=== PATIENT | female | born 1990 | race Caucasian/White ===

== ENCOUNTER 2019-04-14 19:10 | Emergency (ER) | payer OTHER ==
[~2019-04-14] VITALS: Ht 170.2 cm; Wt 65.0 kg
[~2019-04-14 19:10] MED LIST: CYCLOBENZAPRINE10 MG PO; IBUPROFEN600 MG PO; IBUPROFEN800 MG PO; KEFLEX500 MG PO; LIDOCAINE30 G TOP; NAPROXEN500 MG PO; NORCO 5-325 TA1 EACH PO; ORTHO EVRA PAT1 EACH TD; PENICILLIN V P500 MG PO; PREVIFEM1 EACH PO
--- OUTSIDE RECORDS SUMMARY | 2019-04-14 19:12 | XMS ---
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 EDamián VISIT COUNT (12 MO.) 1 MARY Servin TOTAL 1 NOTE: Visits indicate total known visits. ED/UCC VISIT TRACKING (12 MO.) 04/14/2019 19:10 MARY Estrada [place] TYPE: Emergency COMPLAINT: - WRIST INJURY INPATIENT VISIT TRACKING (12 MO.) No inpatient visits to display in this time frame [email or web address]
[2019-04-14] MEDS ORDERED: ZOLOFT25 MG PO (20:28)
[2019-04-14] MEDS ORDERED: TRAMADOL HCL50 MG PO (21:32)
== END 2019-04-14 21:58 | disposition home or self-care (01) ==
LOC: ED 19:10
DX: S63.502A Unspecified sprain of left wrist, initial encounter (principal); X50.1XXA Overexertion from prolonged static or awkward postures, initial encounter
CPT/HCPCS: 73110; 99283

== ENCOUNTER 2019-04-17 15:03 | Emergency (ER) | payer OTHER ==
[~2019-04-17] VITALS: Ht 170.2 cm; Wt 65.0 kg
[~2019-04-17 15:03] MED LIST changes: +TRAMADOL HCL50 MG PO; +ZOLOFT25 MG PO
--- OUTSIDE RECORDS SUMMARY | 2019-04-17 15:06 | XMS ---
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 Care History Medical/Surgical 04/15/2019 [facility] - Patient is currently established with [facility]. If patient is seen in the ED during business hours. Please contact [facility]Ws at [facility]. Care Recommendation: This patient has had 5 or more Emergency Department visits in the last 12 months.\T\nbsp; Patient requires education on the scope and purpose of the ED as an acute care provider not a Primary Care Provider and should not be utilized for chronic conditions.\T\nbsp; These are guidelines and the provider should exercise clinical judgment when providing care. E.D. VISIT COUNT (12 MO.) 2 MARY Servin TOTAL 2 NOTE: Visits indicate total known visits. ED/UCC VISIT TRACKING (12 MO.) 04/17/2019 15:03 [facility] Estrada [place] TYPE: Emergency COMPLAINT: - LEFT WRIST PAIN 04/14/2019 19:10 M[facility] Estrada [place] TYPE: Emergency COMPLAINT: - WRIST INJURY DIAGNOSES: - Unspecified sprain of left wrist, initial encounter - Overexertion from prolonged static or awkward postures, initial encounter - Pain in left wrist INPATIENT VISIT TRACKING (12 MO.) No inpatient visits to display in this time frame [id number]
== END 2019-04-17 16:54 | disposition home or self-care (01) ==
LOC: ED 15:03
DX: S63.502A Unspecified sprain of left wrist, initial encounter (principal); S53.402A Unspecified sprain of left elbow, initial encounter; W18.30XA Fall on same level, unspecified, initial encounter; Z79.899 Other long term (current) drug therapy
CPT/HCPCS: 73090; 99283

== ENCOUNTER 2020-02-25 05:37 | Emergency (ER) | payer OTHER ==
[~2020-02-25] VITALS: Ht 170.2 cm; Wt 70.4 kg
--- OUTSIDE RECORDS SUMMARY | ~2020-02-25 | XMS | Clinical Summary ---
Demographics + + + | Address | [address] | | | [place] [address] | + + + | Home Phone | | + + + | Preferred Language | Unknown | + + + | Marital Status | Single | + + + | Uatsdin Affiliation | Unknown | + + + | Race | Unknown | + + + | Ethnic Group | Unknown | + + + Author + + + | Author | [facility] | | | and [place] | + + + | Organization | [facility] | | | and [place] | + + + | Address | Unknown | + + + | Phone | Unavailable | + + + Support + + +---------+ + | Name | Relationship | Address | Phone | + + +---------+ + | Per Patient None | ECON | Unknown | | + + +---------+ + Care Team Providers + +------+ + | Care Aviation Manager Name | Role | Phone | + +------+ + | Brian Davalos PCP | | + +------+ + Allergies No Known Allergies Medications + + + +---------+------+------+-------+ | Medication | Sig | Dispensed | Refills | Star | End | Statu | | | | | | t | Date | s | | | | | | Date | | | + + + +---------+------+------+-------+ | predniSONE | Take 5 mg by mouth | | 0 | | | Activ | | (DELTASONE) 10 mg | Daily. | | | | | e | | tablet | | | | | | | + + + +---------+------+------+-------+ | sertraline | Take 200 mg by mouth | | 0 | | | Activ | | (ZOLOFT) 100 mg | Daily. | | | | | e | | tablet | | | | | | | + + + +---------+------+------+-------+ | cyclobenzaprine | Take 5 mg by mouth 3 | | 0 | | | Activ | | (FLEXERIL) 5 MG | times daily as | | | | | e | | tablet | needed for Muscle | | | | | | | | spasms. | | | | | | + + + +---------+------+------+-------+ Active Problems Not on file Social History + +-------+ +--------+------+ | Tobacco Use | Types | Packs/Day | Years | Date | | | | | Used | | + +-------+ +--------+------+ | Never Smoker | | | | | + +-------+ +--------+------+ + +---+---+---+ | Smokeless Tobacco: | | | | | Never Used | | | | + +---+---+---+ + + +---------+ + | Alcohol Use | Drinks/Week | oz/Week | Comments | + + +---------+ + | Yes | | | on occasion | + + +---------+ + + + + | Sex Assigned at | Date Recorded | | | | + + + | Not on file | | + + + Last Filed Vital Signs + + + + + | Vital Sign | Reading | Time Taken | Comments | + + + + + | Blood Pressure | 108/77 | 10/26/2019 12:30 PM | | | | | PDT | | + + + + + | Pulse | 78 | 10/26/2019 12:30 PM | | | | | PDT | | + + + + + | Temperature | 37.1 C (98.7 F) | 10/26/2019 10:32 AM | | | | | PDT | | + + + + + | Respiratory Rate | 16 | 10/26/2019 10:32 AM | | | | | PDT | | + + + + + | Oxygen Saturation | 100% | 10/26/2019 12:30 PM | | | | | PDT | | + + + + + | Inhaled Oxygen | - | - | | | Concentration | | | | + + + + + | Weight | 77.1 kg (170 lb) | 10/26/2019 10:32 AM | | | | | PDT | | + + + + + | Height | 167.6 cm (5' 6") | 10/26/2019 10:32 AM | | | | | PDT | | + + + + + | Body Mass Index | 27.44 | 10/26/2019 10:32 AM | | | | | PDT | | + + + + + Plan of Treatment + + + + + | Health Maintenance | Due Date | Last | Comments | | | | Done | | + + + + + | Hepatitis C | | | | | Screening | 0 | | | + + + + + | Cervical Cancer | | | | | Screening (Pap) | 0 | | | + + + + + | Vaccine: Influenza | | 05/02/20 | | | (#1) | 0 | 19, | | | | | 05/17/20 | | | | | 13, | | | | | 06/02/20 | | | | | 11 | | + + + + + | Vaccine: | | 11/07/19 | | | Dtap/Tdap/Td (8 - | 4 | 14, | | | Td) | | 12/11/19 | | | | | 08, | | | | | 08/29/19 | | | | | 03, | | | | | Addition | | | | | al | | | | | history | | | | | exists | | + + + + + Results Not on filefrom Last 3 Months Insurance + +--------+ +--------+ +---------+--------+ | Payer | Benefi | Subscriber | Effect | Phone | Address | Type | | | t Plan | ID | negrita | | | | | | / | | Dates | | | | | | Group | | | | | | + +--------+ +--------+ +---------+--------+ | [employer] | [employer] | [id number] | | [phone] | | Medica | | MEDICAID HMO | HEALTH | | [phone]-Pr | 1 | | id | | | MDCD | | esent | | | | | | [place]MO [place] | | | | | | + +--------+ +--------+ +---------+--------+ + +--------+ +--------+ + + | Guarantor Name | Accoun | Relation to | Date | Phone | Billing Address | | | t Type | Patient | of | | | | | | | | | | + +--------+ +--------+ + + | Erin Coleman | Person | Self [birth year] | | | al/Fam | | 1990 | [phone] | [place] [address] | | | [place] | | | [address] (Home) | | + +--------+ +--------+ + + Advance Directives + + + + + | Type | Date Recorded | Patient | Explanation | | | | 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
--- OUTSIDE RECORDS SUMMARY | ~2020-02-25 | XMS | Encounter Summary ---
Demographics + + + | Address | [address] | | | [place] [address] | + + + | Home Phone | | + + + | Preferred Language | Unknown | + + + | Marital Status | Single | + + + | Alevism Affiliation | Unknown | + + + | Race | Unknown | + + + | Ethnic Group | Unknown | + + + Author + + + | Author | [facility] | | | and [place] | + + + | Organization | [facility] | | | and [place] | [...] Team Providers + +------+ + | Care Piano Case Maker Name | Role | Phone | + +------+ + | Brian Davalos PCP | | + +------+ + Reason for Visit + + + | Reason | Comments | + + + | Back Pain | | + + + | Dysuria | | + + + Encounter Details +--------+ + + + + | Date | Type | Department | Care Team | Description | +--------+ + + + + | 10/25/ | Emergency | [facility] | Vivek Gandara, | Acute bilateral low | | 2019 | | [facility] | MD [address] | back pain without | | | | CENTER [address] | [place], [place] | sciatica (Primary | | | | [place], [place] | [address] | Dx); Dysuria | | | | [address] | | | | | | [phone] | | | +--------+ + + + + Social History + +-------+ +--------+------+ | Tobacco [...] on file | | + + + documented as of this encounter Last Filed Vital Signs + + + [...] | | + + + + + documented in this encounter Discharge Instructions AttachmentsThe following attachments cannot be sent through Care Everywhere.Dysuria ([place])Dysuria, Uncertain Cause (Adult) (Citizen [place])Back Pain, Relieving (Citizen [place])Back, How It Works (Citizen [place])Safety, Back: Bending (Citizen [place])documented in this encounter Medications at Time of Discharge + + + +---------+ + + | Medication | Sig | Dispensed | Refills | Start | End Date | | | | | | Date | | + + + +---------+ + + | cyclobenzaprine | Take 5 mg by mouth 3 | | 0 | | | | (FLEXERIL) 5 MG | times daily as | | | | | | tablet | needed for Muscle | | | | | | | spasms. | | | | | + + + +---------+ + + | predniSONE | Take 5 mg by mouth | | 0 | | | | (DELTASONE) 10 mg | Daily. | | | | | | tablet | | | | | | + + + +---------+ + + | sertraline | Take 200 mg by mouth | | 0 | | | | (ZOLOFT) 100 mg | Daily. | | | | | | tablet | | | | | | + + + +---------+ + + | gabapentin | Take 1 capsule by | 30 | 0 | 10/26/19 | | | (NEURONTIN) 300 mg | mouth 3 times daily | capsule | | 20 | 0 | | capsule | for 10 days. | | | | | + + + +---------+ + + | | Take 1 tablet by | 12 | 0 | 10/26/19 | | | HYDROcodone-acetamin | mouth every 6 hours | tablet | | 20 | 0 | | ophen (NORCO) 5-325 | as needed for Pain | | | | | | mg per tablet | for up to 3 days. | | | | | + + + +---------+ + + documented as of this encounter ED Rosy Howard RN - 10/26/2019 12:45 PM PDTDischarged in stable condition per MD order. Pt received discharge instructions and performed verbal repeatback for RN to indicate full u nderstanding. All questions answered. Pt alert/oriented, ambulatory with steady gait, breath ing unlabored on room air, and skin pink/warm/dry. No additional needs noted. Rosy Summers RN - 10/26/2019 10 :32 AM PDTPt here for low back pain along with urinary urgency (which pt states came first). Hx of herniated disc L4/L5. Took course of prednisone and muscle relaxers after seen by PCP a few days ago, and did 2 days bedrest and alternating heat/cold therapy. Little to no reli ef. Vivek Lawrence MD - 10/26/2019 10:19 AM PDT [facility] Erin Coleman EMERGENCY DEPARTMENT ENCOUNTER NOTE [address] [place] [id number] PCP:Brian Davalos [phone] DIAGNOSIS: ICD-10-CM ICD-9-CM 1. Acute bilateral low back pain without sciatica M54.5 724.2 338.19 2. Dysuria R30.0 788.1 CHIEF COMPLAINT: Chief Complaint Patient presents with Back Pain Dysuria ED Room: ED02/ED02 10/27/2019 1032 ED Triage Notes Pt here for low back pain along with urinary urgency (which pt states came first). Hx of he rniated disc L4/L5. Took course of prednisone and muscle relaxers after seen by PCP a few da ys ago, and did 2 days bedrest and alternating heat/cold therapy. Little to no relief. Displaying data from 0259 to 1059 HPI Erin Coleman is a 29 y.o. female who presents to the Emergency Department presents with g reater than 1 to 2 weeks of low back pain that makes her feel almost incapacitated at someti mes. No recent travel outside the [place] no recent falls or injuries. She went down to the dain und of the day because she felt incapacitated due to the pain. Now she has numbness and tin gling all over her body. No recent falls no injuries. No temperature greater than 100 F. No travel outside the [place] No new medications or pills. Reports sometimes having difficulty holding her urine befo re she goes to the bathroom. But she notes that she needs to go the bathroom she needs to g o urgently and she may have had some accidents. She has not had episodes where she was comp letely unaware that she needed to void and urinated on herself. She has not had loss of con trol of her bowel habits. PAST MEDICAL & SURGICAL HISTORY The patient has a past medical history of Lumbar herniated disc. The patient has a past adkins rgical history that includes section. CURRENT MEDICATIONS [facility] Home Medications Medication Sig cyclobenzaprine (FLEXERIL) 5 MG tablet Take 5 mg by mouth 3 times daily as needed for M uscle spasms. predniSONE (DELTASONE) 10 mg tablet Take 5 mg by mouth Daily. sertraline (ZOLOFT) 100 mg tablet Take 200 mg by mouth Daily. ALLERGIES No Known Allergies FAMILY AND SOCIAL HISTORY The patient's family history is not on file. The patient reports that she has never smoked. She has never used smokeless tobacco. She reports current alcohol use. She reports previous drug use. REVIEW OF SYSTEMS As in history of present illness. A 10 system review was otherwise negative. PHYSICAL EXAM VITAL SIGNS: (first vital signs):Temp: 37.1 C (98.7 F) Pulse: 71 Resp: 16 SpO2: 100 % B P: 119/81 Body mass index is 27.44 kg/m. Vitals: 10/26/19 1145 10/26/19 1200 10/26/19 1215 10/26/19 1230 BP: 111/74 104/73 113/66 108/77 Pulse: 63 67 65 78 Resp: Temp: TempSrc: SpO2: 100% 100% 100% 100% Weight: Height: General: Alert, no active distress and not requiring any emergent interventions Eyes: Normal inspection, pupils equal and round, non-icteric sclera ENT: Ears normal Nose normal Pharynx normal Neck: Normal inspection Supple Full ROM Cardiovascular: Normal rate and rhythm, no extra sounds No murmurs rubs or gallops Focal PMI Respiratory: No respiratory distress or wheezing Normal excursion No retractions Abdomen: Soft, non-tender, non-distended Normal active bowel sounds Back: Normal inspection Without tenderness or deformity Skin: Color normal Warm and dry Extremities: OTERO with equal pulses in the upper and lower extremities bilaterally Neuro: No gross motor/sensory deficit GCS 15 No cerebellar deficits Alert and oriented to person, place, time and situation. EKG LABS Results for orders placed or performed during the hospital encounter of 10/26/19 Urinalysis with Microscopic with Culture if Indicated Result Value Ref Range Color, Urine Yellow Light Yellow, Yellow, Straw Clarity Clear Clear pH, Urine 6.0 5.0 - 8.0 Specific [place] 1.025 1.001 - 1.030 Protein, Urine Negative Negative Blood, Urine Negative Negative Glucose, Urine Negative Negative Ketones, Urine Negative Negative Bilirubin, Urine Negative Negative Nitrite, Urine Negative Negative Leukocyte Esterase, Urine Negative Negative Urobilinogen, Urine Negative 0.2 mg/dL, 1.0 mg/dL, Negative WBC UA 0-2 0 - 2 /HPF RBC UA 0-2 0 - 2 /HPF SQUAMOUS EPITHELIAL UA 25-50 (A) 0 - 2 /LPF BACTERIA UA Negative Negative /HPF MUCUS UA Present (A) Negative /LPF URINE COMMENT Urine Culture Not Indicated , Urine, Qual Result Value Ref Range HCG SCREEN, URINE Negative Negative IMAGING STUIDES (X-Rays interpreted by ED Physician) Recent Results (from the past 360 hour(s)) CT Renal Stone Wo Contrast Narrative TECHNIQUE: Noncontrast axial CT imaging was obtained through the abdomen and pelvis with coronal and sagittal reformats. At least one of the following CT dose optimization techniques were used: Automated exposure control; Adjustment of mA and/or kV according to patient size; Use of iterative reconstruction technique. CLINICAL INFORMATION: Back pain or radiculopathy, < 6 wks, uncomplicated COMPARISON: None available. FINDINGS: LOWER CHEST: Minimal bilateral dependent atelectasis. BONES: No acute osseous abnormality. No osteoblastic or osteolytic lesion. ABDOMEN/PELVIS: Abdominal wall: No inguinal lymphadenopathy. Liver: No mass lesion. Gallbladder: No calcified gallstones. Normal caliber wall. Pancreas: No mass or ductal dilatation. Spleen: Unremarkable. Adrenals: No nodule. Kidneys: No nephrolithiasis or hydronephrosis. No evidence of a soft tissue mass. Ureters: No hydroureter. Urinary Bladder: No wall thickening. Reproductive organs: No pelvic mass. Bowel: The appendix is not visualized. No inflammatory changes at the right lower quadrant to suggest appendicitis. No wall thickening or obstruction. Moderate amount of stool throughout the colon. Peritoneum/retroperitoneum: Trace free fluid in the pelvis, likely physiologic. Unremarkable CT appearance of the uterus and ovaries. Vessels: Normal caliber of the abdominal aorta. Impression No urolithiasis or evidence of obstructive uropathy. Moderate colonic stool retention. Dictated and Signed by: Phil Dillard MD Electronically signed: 10/26/2019 11:37 AM ED COURSE & MEDICAL DECISION MAKING Pertinent Labs & Imaging studies were reviewed along with EMS notes and [facility] record s if applicable. (See chart for details) Medications and Allergy list reviewed. Nurses note and old records were reviewed 10:19 The patient was seen and examined, and the patient's clinical presentation I have con sidered renal colic, atypical appendicitis, tubo-ovarian abscess, UTI, pyelonephritis, STI, bowel obstruction, malignancy of the lumbar spine, osteomyelitis, epidural abscess, cauda eq uina, and atypical diverticulitis. I do not believe this clinical presentation represents o steomyelitis of the lumbar spine, transverse myelitis, epidural abscess, or nor cauda equina . Based on the patient's clinical presentation past medical history and current clinical co ndition I do not believe that that is this patient's clinical presentation. She is afebrile without any evidence of trauma. I will order a CT scan of the lumbar spine with urinalysis and test. I personally reviewed the lab results and they have been posted to the chart. Pertinent po sitive and negative findings have been addressed appropriately and I have discussed any sign ificant abnormalities. Discussed with the patient the results of the CT scan for renal with no evidence of any renal colic tumors masses or acute surgical issue present. The body of spine was interpreted as being normal. There is no secondary telemetry test signs to sugges t inflammation discitis osteomyelitis or other abnormal infection. I have discussed my clinical impression and treatment plan with the pt. We have specificall y discussed the signs and symptoms that would constitute the need for an immediate return to the ED, the importance of continued outpatient f/u and the importance of compliance with th e d/c instructions. I have answered any questions that the pt has to the best of my ability. Based upon the pt s history, physical exam, ED course, and diagnostic studies, I feel yamilka t there is no current emergent medical condition that warrants admission, transfer, or furth er ED treatment at this time. Last Set of Vital Signs: Temp: 37.1 C (98.7 F) Pulse: 78 Resp: 16 SpO2: 100 % BP: 108/7 7 Medications lactulose liquid 30 mL (30 mLs Oral Given 10/26/19 1239) aluminum & magnesium hydroxide-simethicone (MAALOX PLUS REGULAR STRENGTH) 200-200-20 mg/5 m L suspension 30 mL (30 mLs Oral Given 10/26/19 1239) Vitals: 10/26/19 1145 10/26/19 1200 10/26/19 1215 10/26/19 1230 BP: 111/74 104/73 113/66 108/77 Pulse: 63 67 65 78 Resp: Temp: TempSrc: SpO2: 100% 100% 100% 100% Weight: Height: FINAL IMPRESSION ICD-10-CM ICD-9-CM 1. Acute bilateral low back pain without sciatica M54.5 724.2 338.19 2. Dysuria R30.0 788.1 Follow-up Information Brian Davalos. Specialty: Family Medicine Why: Please call today to arrange follow-up in the next 3-5 days for your ED visit Contact information: [address] [place] [id number] [facility]. Specialty: Emergency Medicine Contact information: [address] [place] [address] Discharge Medication List as of 10/26/2019 12:23 PM START taking these medications Details gabapentin (NEURONTIN) 300 mg capsule Take 1 capsule by mouth 3 times daily for 10 days.Dis p-30 capsule, R-0, Print HYDROcodone-acetaminophen (NORCO) 5-325 mg per tablet Take 1 tablet by mouth every 6 hours as needed for Pain for up to 3 days.Disp-12 tablet, R-0, Print Vivek Gandara. This document has been prepared with a voice recognition system. The possibility of "sound alike" camp program director errors, addition and/or deletions may occur. If there is any question p lease contact the author of the document. Vivek Gandara MD 10/27/19 3643 documented in this encounter Plan of Treatment + +------+--------+ + + | Name | Type | Priori | Associated Diagnoses | Date/Time | | | | ty | | | + +------+--------+ + + | ED INFORMATION | GARY | Routin | | 10/26/2019 11:45 AM | | EXCHANGE | | e | | PDT | + +------+--------+ + + documented as of this encounter Procedures + +--------+ + + + | Procedure Name | Priori | Date/Time | Associated Diagnosis | Comments | | | ty | | | | + +--------+ + + + | ED INFORMATION | Routin | 10/26/2019 | | | | EXCHANGE | e | 11:45 AM | | | | | | PDT | | | + +--------+ + + + +---+--------+ | | | | | Proced | | | ure | | | Note - | | | Kulwant, | | | Lab In | | | | | | Hlseve | | | n - | | | 10/25/ | | | 2019 | | | 11:46 | | | AM PDT | | | | | | Format | | | ting | | | of | | | this | | | note | | | might | | | be | | | differ | | | ent | | | from | | | the | | | origin | | | al.COL | | | LECTIV | | | E?NOTI | | | FICATI | | | ON?03/ | | | / | | | 0 | | | 10:07? | | | COLEMAN, | | | | | | JOY | | | [place]?MRN | | | : | | | [id number] | | | [id number] | | | riteri | | | a Met | | | Care | | | Guidel | | | inesSe | | | curity | | | and | | | Safety | | | No | | | recent | | | | | | Securi | | | ty | | | Events | | | | | | curren | | | tly on | | | | | | fileED | | | Care | | | Guidel | | | inesTh | | | ere | | | are | | | curren | | | tly no | | | ED | | | Care | | | Guidel | | | isadora | | | for | | | this | | | patien | | | t. | | | Please | | | check | | | your | | | facili | | | ty's | | | medica | | | l | | | record | | | s | | | system | | | .Care | | | Histor | | | yMedic | | | al/Ernesto | | | [email or web address] | | | /16/19 | | | 12:00 | | | AM | | | [facility] | | | al | | | Patien | | | t is | | | curren | | | tly | | | establ | | | ished | | | with | | | St | | | [facility] | | Clinic | | | . If | | | patien | | | t is | | | seen | | | in the | | | ED | | | during | | | | | | busine | | | ss | | | hours. | | | | | | Please | | | | | | contac | | | t [facility] at [facility] | | | | | | [facility] | | | Clinic | | | .Care | | | Recomm | | | endati | | | on:Thi | | | s | | | patien | | | t has | | | had 5 | | | or | | | more | | | Emerge | | | ncy | | | Depart | | | ment | | | visits | | | in | | | the | | | last | | | 12 | | | months | | | .? | | | Patien | | | t | | | requir | | | es | | | educat | | | ion on | | | the | | | scope | | | and | | | purpos | | | e of | | | the ED | | | as an | | | acute | | | care | | | provid | | | er not | | | a | | | Primar | | | y Care | | | | | | Provid | | | er and | | | | | | should | | | not | | | be | | | utiliz | | | ed for | | | | | | chroni | | | c | | | condit | | | ions.? | | | These | | | are | | | guidel | | | isadora | | | and | | | the | | | provid | | | er | | | should | | | | | | exerci | | | se | | | clinic | | | al | | | judgme | | | nt | | | when | | | provid | | | ing | | | care.F | | | lags | | | [place] | | | ED | | | Dispar | | | ity | | | Measur | | | e - | | | [place] | | | has | | | develo | | | ped a | | | flag | | | (Orego | | | n ED | | | Dispar | | | ity | | | Measur | | | e) to | | | help | | | suppor | | | t | | | Medica | | | id | | | member | | | s with | | | | | | mental | | | | | | illnes | | | s. | | | [place] | | | | | | Health | | | | | | Author | | | ity | | | uses | | | claims | | | data | | | with a | | | | | | 36-mon | | | th | | | jarod | | | g look | | | back | | | period | | | to | | | identi | | | fy | | | member | | | s who | | | have | | | had | | | two or | | | more | | | diagno | | | ses of | | | | | | mental | | | | | | illnes | | | s | | | (does | | | not | | | need | | | to be | | | primar | | | y) in | | | any | | | settin | | | g | | | (e.g. | | | ED, | | | Inpati | | | ent, | | | primar | | | y | | | care). | | | | | | Flagge | | | d | | | member | | | s are | | | includ | | | ed in | | | the ED | | | | | | Dispar | | | ity | | | Measur | | | e | | | denomi | | | nator | | | popula | | | tion. | | | Flags | | | are | | | update | | | d | | | weekly | | | . / | | | Attrib | | | uted | | | By: | | | [place] | | | | | | Health | | | | | | Author | | | ity | | | (OHA) | | | / | | | Attrib | | | uted | | | On: | | | 02/05/ | | | 2020 | | | Prescr | | | iption | | | Drug | | | Report | | | (12 | | | Mo.)PD | | | MP | | | query | | | found | | | no | | | report | | | .E.D. | | | Visit | | | Count | | | (12 | | | mo.)Fa | | | cility | | | | | | Visits | | | Low | | | Acuity | | | | | | Provid | | | ence | | | St[facility] | | | [facility] | | Medica | | | l | | | Center | | | 1 0 | | | [facility] | [facility] | | | al 2 0 | | | Total | | | 3 0 | | | Note: | | | Visits | | | | | | indica | | | te | | | total | | | known | | | visits | | | . | | | Medica | | | id Low | | | | | | Acuity | | | Dx | | | are | | | the | | | number | | | of | | | primar | | | y | | | diagno | | | ses on | | | the | | | Medica | | | id's | | | Low | | | Acuity | | | dx | | | list. | | | | | | Recent | | | | | | Emerge | | | ncy | | | Depart | | | ment | | | Visit | | | [facility] | | | yDate | | | Facili | | | ty | | | City | | | State | | | Type | | | Diagno | | | ses or | | | Chief | | | | | | Compla | | | int | | | Mar | | | 28, | | | 2020 | | | Provid | | | ence | | | [facility] [place] | | | [place] | | | Emerge | | | ncy | | | Back | | | Pain | | | | | | Dysuri | | | a Sep | | | 18, | | | 2019 | | | [facility] [place] | | | [place] | | | Emerge | | | ncy | | | | | | Unspec | | | ified | | | sprain | | | of | | | left | | | wrist, | | | | | | initia | | | l | | | encoun | | | ter | | | Pain | | | in | | | left | | | wrist | | | | | | Unspec | | | ified | | | sprain | | | of | | | left | | | elbow, | | | | | | initia | | | l | | | encoun | | | ter | | | Fall | | | on | | | same | | | level, | | | | | | unspec | | | ified, | | | | | | initia | | | l | | | encoun | | | ter | | | Other | | | long | | | term | | | (curre | | | nt) | | | drug | | | therap | | | y Sep | | | 15, | | | 2019 | | | [facility] | | | [place] | | | [place] | | | Emerge | | | ncy | | | | | | Unspec | | | ified | | | sprain | | | of | | | left | | | wrist, | | | | | | initia | | | l | | | encoun | | | ter | | | | | | Overex | | | ertion | | | from | | | prolon | | | ged | | | static | | | or | | | awkwar | | | d | | | postur | | | es, | | | initi | | | | | | Pain | | | in | | | left | | | wrist | | | | | | Recent | | | | | | Inpati | | | ent | | | Visit | | | [facility] | | | yNo | | | record | | | ed | | | inpati | | | ent | | | visits | | | . Care | | | | | | TeamPr | | | ovider | | | | | | Specia | | | lty | | | Phone | | | Fax | | | Servic | | | e | | | Dates | | | [facility] | | | ER, | | | MEGAN , | | | ENDS BREAKAGE CLERK | | | Nurse | | | Practi | | | tioner | | | : | | | Family | | | ([phone]) | | | | | | [phone] | | | [phone] | | | (541) | | | [phone] | | | 97 Sep | | | 16, | | | 2019 - | | | | | | Curren | | | t | | | MEGAN | | | [facility] | | | [place] | | | | | | Primar | | | y Care | | | (541) | | | | | | [phone] | | | 35 | | | (541) | | | [phone] | | | 97 May | | | 1, | | | 2017 - | | | | | | Curren | | | t | | | Collec | | | tive | | | Portal | | | This | | | patien | | | t has | | | regist | | | ered | | | at the | | | | | | Provid | | | ence | | | St[facility] | | | [facility] | | | Medica | | | l | | | Center | | | | | | Emerge | | | ncy | | | Depart | | | ment | | | For | | | more | | | inform | | | ation | | | visit: | | | | | | https: | | | //prov | | | .colle | | | ctivem | | | edical | | | .com/n | | | otify/ | | | [email or web address] | | | [phone] | | | [phone] | | | -[phone] | | | [id number] | | | [email or web address] | | | | | | PLEASE | | | NOTE: | | | 1. | | | Any | | | care | | | recomm | | | endati | | | ons | | | and | | | other | | | clinic | | | al | | | inform | | | ation | | | are | | | provid | | | ed as | | | guidel | | | isadora | | | or for | | | | | | histor | | | ical | | | purpos | | | es | | | only, | | | and | | | provid | | | ers | | | should | | | | | | exerci | | | se | | | their | | | own | | | clinic | | | al | | | judgme | | | nt | | | when | | | provid | | | ing | | | care. | | | 2. | | | You | | | may | | | only | | | use | | | this | | | inform | | | ation | | | for | | | purpos | | | es of | | | treatm | | | ent, | | | paymen | | | t or | | | health | | | care | | | operat | | | ions | | | activi | | | ties, | | | and | | | subjec | | | t to | | | the | | | limita | | | tions | | | of | | | applic | | | able | | | Collec | | | tive | | | Polici | | | es. | | | 3. | | | You | | | should | | | | | | consul | | | t | | | direct | | | ly | | | with | | | the | | | organi | | | zation | | | that | | | provid | | | ed a | | | care | | | guidel | | | ine or | | | other | | | | | | clinic | | | al | | | histor | | | y with | | | any | | | questi | | | ons | | | about | | | additi | | | onal | | | inform | | | ation | | | or | | | accura | | | cy or | | | comple | | | teness | | | of | | | inform | | | ation | | | provid | | | ed.? | | | 2020 | | | Collec | | | tive | | | Medica | | | l | | | Techno | | | logies | | | , Inc[employer] | | | - | | | [email or web address] | | | llecti | | | vemedi | | | [email or web address] | | | m | +---+--------+ + +------+ +---+ + | CT RENAL STONE WO | MARIBEL | 10/26/2019 | | Results for this | | CONTRAST | | 11:11 AM | | procedure are in the | | | | PDT | | results section. | + +------+ +---+ + | URINALYSIS WITH | STAT | 10/26/2019 | | Results for this | | MICROSCOPIC WITH | | 10:45 AM | | procedure are in the | | CULTURE IF INDICATED | | PDT | | results section. | + +------+ +---+ + | HCG, URINE, QUAL | STAT | 10/26/2019 | | Results for this | | | | 10:45 AM | | procedure are in the | | | | PDT | | results section. | + +------+ +---+ + | IMAGING REPORT - | | 04/17/2019 | | Results for this | | EXTERNAL SCAN | | 12:00 AM | | procedure are in the | | | | PDT | | results section. | + +------+ +---+ + documented in this encounter Results CT Renal Stone Wo Contrast (10/26/2019 11:11 AM PDT) + + | Specimen | + + | | + + + + + | Impressions | Performed At | + + + | No urolithiasis or evidence of obstructive uropathy. Moderate | [facility] | | colonic stool retention. Dictated and Signed by: Phil Dillard, | | | Electronically signed: 10/26/2019 11:37 AM | | + + + + + + | Narrative | Performed At | + + + | TECHNIQUE: Noncontrast axial CT imaging was obtained through the | [facility] | | abdomen and pelvis with coronal and sagittal reformats. At least | | | one of the following CT dose optimization techniques were used: | | | Automated exposure control; Adjustment of mA and/or kV according to | | | patient size; Use of iterative reconstruction technique. CLINICAL | | | INFORMATION: Back pain or radiculopathy, < 6 wks, uncomplicated | | | COMPARISON: None available. FINDINGS: LOWER CHEST: Minimal | | | bilateral dependent atelectasis. BONES: No acute osseous | | | abnormality. No osteoblastic or osteolytic lesion. ABDOMEN/PELVIS: | | | Abdominal wall: No inguinal lymphadenopathy. Liver: No mass | | | lesion. Gallbladder: No calcified gallstones. Normal caliber wall. | | | Pancreas: No mass or ductal dilatation. Spleen: Unremarkable. | | | Adrenals: No nodule. Kidneys: No nephrolithiasis or hydronephrosis. | | | No evidence of a soft tissue mass. Ureters: No hydroureter. | | | Urinary Bladder: No wall thickening. Reproductive organs: No pelvic | | | mass. Bowel: The appendix is not visualized. No inflammatory | | | changes at the right lower quadrant to suggest appendicitis. No wall | | | thickening or obstruction. Moderate amount of stool throughout the | | | colon. Peritoneum/retroperitoneum: Trace free fluid in the pelvis, | | | likely physiologic. Unremarkable CT appearance of the uterus and | | | ovaries. Vessels: Normal caliber of the abdominal aorta. | | + + + + + | Procedure Note | + + | Kulwant, Rad Results In 10/26/2019 11:41 AM PDT | | TECHNIQUE: Noncontrast axial CT imaging was obtained through the abdomen and | | pelvis with coronal and sagittal reformats. | | | | At least one of the following CT dose optimization techniques were | | used: Automated exposure control; Adjustment of mA and/or kV according | | to patient size; Use of iterative reconstruction technique. | | | | CLINICAL INFORMATION: Back pain or radiculopathy, < 6 wks, uncomplicated | | | | COMPARISON: None available. | | | | FINDINGS: | | | | LOWER CHEST: Minimal bilateral dependent atelectasis. | | | | BONES: No acute osseous abnormality. No osteoblastic or osteolytic lesion. | | | | ABDOMEN/PELVIS: | | Abdominal wall: No inguinal lymphadenopathy. | | | | Liver: No mass lesion. | | Gallbladder: No calcified gallstones. Normal caliber wall. | | Pancreas: No mass or ductal dilatation. | | Spleen: Unremarkable. | | | | Adrenals: No nodule. | | Kidneys: No nephrolithiasis or hydronephrosis. No evidence of a soft tissue | | mass. | | Ureters: No hydroureter. | | Urinary Bladder: No wall thickening. | | Reproductive organs: No pelvic mass. | | | | Bowel: The appendix is not visualized. No inflammatory changes at the right | | lower quadrant to suggest appendicitis. No wall thickening or obstruction. | | Moderate amount of stool throughout the colon. | | Peritoneum/retroperitoneum: Trace free fluid in the pelvis, likely physiologic. | | Unremarkable CT appearance of the uterus and ovaries. | | Vessels: Normal caliber of the abdominal aorta. | | | | | | IMPRESSION: | | | | No urolithiasis or evidence of obstructive uropathy. | | | | Moderate colonic stool retention. | | | | Dictated and Signed by: Phil Dillard MD | | Electronically signed: 10/26/2019 11:37 AM | + + + +---------+ + + | Performing | Address | City/State/Zipcode | Phone Number | | Organization | | | | + +---------+ + + | [facility] | | | | + +---------+ + + , Urine, Qual (10/26/2019 10:45 AM PDT) + + + + + + | Component | Value | Ref Range | Performed | Pathologist | | | | | At | Signature | + + + + + + | HCG | Negative | Negative | [facility] | | | Qualitative | | | [facility] | | | , Urine | | | MEDICAL | | | | | | CENTER - | | | | | | LABORATORY | | + + + + + + + + | Specimen | + + | Urine - Urine | | specimen obtained by | | clean catch | | procedure (specimen) | + + + + + + + | Performing | Address | City/State/Zipcode | Phone Number | | Organization | | | | + + + + + | [facility] | [address] | [place] | [phone] | | [facility] | | [address] | | | - LABORATORY | | | | + + + + + Urinalysis with Microscopic with Culture if Indicated (10/26/2019 10:45 AM PDT) + + + + + + | Component | Value | Ref Range | Performed | Pathologist | | | | | At | Signature | + + + + + + | Color, | Yellow | Light Yellow, | [facility] | | | Urine | | Yellow, Straw | [facility] | | | | | | MEDICAL | | | | | | CENTER - | | | | | | LABORATORY | | + + + + + + | Clarity, | Clear | Clear | [facility] | | | Urine | | | [facility] | | | | | | MEDICAL | | | | | | CENTER - | | | | | | LABORATORY | | + + + + + + | pH, Urine | 6.0 | 5.0 - 8.0 | [facility] | | | | | | [facility] | | | | | | MEDICAL | | | | | | CENTER - | | | | | | LABORATORY | | + + + + + + | Specific | 1.025 | 1.001 - 1.030 | [facility] | | | [place], | | | [facility] | | | Urine | | | MEDICAL | | | | | | CENTER - | | | | | | LABORATORY | | + + + + + + | Protein, | Negative | Negative | [facility] | | | Urine | | | [facility] | | | | | | MEDICAL | | | | | | CENTER - | | | | | | LABORATORY | | + + + + + + | Blood, | Negative | Negative | [facility] | | | Urine | | | [facility] | | | | | | MEDICAL | | | | | | CENTER - | | | | | | LABORATORY | | + + + + + + | Glucose, | Negative | Negative | [facility] | | | Urine | | | [facility] | | | | | | MEDICAL | | | | | | CENTER - | | | | | | LABORATORY | | + + + + + + | Ketones, | Negative | Negative | [facility] | | | Urine | | | [facility] | | | | | | MEDICAL | | | | | | CENTER - | | | | | | LABORATORY | | + + + + + + | Bilirubin, | Negative | Negative | [facility] | | | Urine | | | [facility] | | | | | | MEDICAL | | | | | | CENTER - | | | | | | LABORATORY | | + + + + + + | Nitrite, | Negative | Negative | [facility] | | | Urine | | | [facility] | | | | | | MEDICAL | | | | | | CENTER - | | | | | | LABORATORY | | + + + + + + | Leukocyte | Negative | Negative | [facility] | | | Esterase, | | | [facility] | | | Urine | | | MEDICAL | | | | | | CENTER - | | | | | | LABORATORY | | + + + + + + | Urobilinoge | Negative | 0.2 mg/dL, 1.0 | [facility] | | | n, Urine | | mg/dL, Negative | [facility] | | | | | | MEDICAL | | | | | | CENTER - | | | | | | LABORATORY | | + + + + + + | White Blood | 0-2 | 0 - 2 /HPF | [facility] | | | Cells, | | | [facility] | | | Urine | | | MEDICAL | | | | | | CENTER - | | | | | | LABORATORY | | + + + + + + | Red Blood | 0-2 | 0 - 2 /HPF | [facility] | | | Cells, | | | [facility] | | | Urine | | | MEDICAL | | | | | | CENTER - | | | | | | LABORATORY | | + + + + + + | Squamous | 25-50 (A) | 0 - 2 /LPF | [facility] | | | Epithelial | | | [facility] | | | Cells, | | | MEDICAL | | | Urine | | | CENTER - | | | | | | LABORATORY | | + + + + + + | Bacteria, | Negative | Negative /HPF | [facility] | | | Urine | | | [facility] | | | | | | MEDICAL | | | | | | CENTER - | | | | | | LABORATORY | | + + + + + + | Mucus, | Present (A) | Negative /LPF | [facility] | | | Urine | | | [facility] | | | | | | MEDICAL | | | | | | CENTER - | | | | | | LABORATORY | | + + + + + + | Urine | Urine Culture Not | | [facility] | | | Comment | Indicated | | [facility] | | | | | | MEDICAL | | | | | | CENTER - | | | | | | LABORATORY | | + + + + + + + + | Specimen | + + | Urine - Urine | | specimen obtained by | | clean catch | | procedure (specimen) | + + + + + + + | Performing | Address | City/State/Zipcode | Phone Number | | Organization | | | | + + + + + | [facility] | [address] | [place] | [phone] | | [facility] | | [address] | | | - LABORATORY | | | | + + + + + IMAGING REPORT - EXTERNAL SCAN (04/17/2019 12:00 AM PDT) + + + | Narrative | Performed At | + + + | Ordered by an | | | unspecified provider. | | + + + documented in this encounter Visit Diagnoses + + | Diagnosis | + + | Acute bilateral low back pain without sciatica - Primary | + + | Dysuria | + + documented in this encounter Administered Medications + +--------+ +--------+------+------+ | Medication Order | MAR | Action | Dose | Rate | Site | | | Action | Date | | | | + +--------+ +--------+------+------+ | aluminum & magnesium | Given | //20 | 30 mLs | | | | hydroxide-simethicone (MAALOX | | 20 12:39 | | | | | PLUS REGULAR STRENGTH) 200-200-20 | | PM PDT | | | | | mg/5 mL suspension 30 mL 30 mL, | | | | | | | Oral, ONCE, 10/26/19 at 1220, | | | | | | | For 1 dose, Shake well., | | | | | | + +--------+ +--------+------+------+ +---+---+ | | | +---+---+ + +-------+ +--------+---+---+ | lactulose liquid 30 mL 30 mL, | Given | 10/26/19 | 30 mLs | | | | Oral, ONCE, 10/26/19 at 1220, | | 20 12:39 | | | | | For 1 dose | | PM PDT | | | | + +-------+ +--------+---+---+ +---+---+ | | | +---+---+ documented in this encounter
--- OUTSIDE RECORDS SUMMARY | 2020-02-25 05:40 | XMS ---
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 Care History Medical/Surgical 04/15/2019 [facility] - Patient is currently established with [facility]. If patient is seen in the ED during business hours. Please contact [facility]Ws at [facility]. Care Recommendation: This patient has had 5 [...] providing care. E.D. VISIT COUNT (12 MO.) 1 [facility] 3 [facility] TOTAL 4 NOTE: Visits indicate total known visits. 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
[2020-02-25] MEDS ORDERED: CYCLOBENZAPRINE10 MG PO (06:58)
[2020-02-25] MEDS ORDERED: DICLOFENAC SODI75 MG PO (06:58)
[2020-02-25] MEDS ORDERED: ONDANSETRON ODT8 MG PO (08:08)
== END 2020-02-25 08:27 | disposition home or self-care (01) ==
LOC: ED 05:37
DX: S16.1XXA Strain of muscle, fascia and tendon at neck level, initial encounter (principal); X58.XXXA Exposure to other specified factors, initial encounter
CPT/HCPCS: 80053; 85025; 85651; 96374; 96375; 99283-25; J1885; J2405

== ENCOUNTER 2020-06-18 07:33 | Emergency (ER) | payer OTHER ==
[~2020-06-18] VITALS: Ht 170.2 cm; Wt 79.5 kg
[~2020-06-18 07:33] MED LIST changes: +DICLOFENAC SODI75 MG PO; +ONDANSETRON ODT8 MG PO
--- OUTSIDE RECORDS SUMMARY | 2020-06-18 07:34 | XMS ---
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 E.[facility]omer VISIT COUNT (12 MO.) 1 [facility] 2 MARY Servin TOTAL 3 NOTE: Visits indicate total known visits. ED/UCC VISIT TRACKING (12 MO.) 06/18/2020 07:33 MARY Arndt TYPE: Emergency COMPLAINT: - CHEST PAIN, SOB 02/25/2020 05:38 MARY Arndt TYPE: Emergency COMPLAINT: - NECK PAIN/HEARING LOSS DIAGNOSES: - Strain of muscle, fascia and tendon at neck level, initial encounter - Otalgia, bilateral - Exposure to other specified factors, initial encounter 10/26/2019 10:07 [facility] TYPE: Emergency DIAGNOSES: - Dysuria - Low back pain - Dysuria - Back Pain INPATIENT VISIT TRACKING (12 MO.) No inpatient visits to display in this time frame [email or web address]
[2020-06-18] MEDS ORDERED: ZOLOFT100 MG PO (07:45)
[2020-06-18] MEDS ORDERED: VENTOLIN HFA18 GM INH (07:45)
[2020-06-18] MEDS ORDERED: ELINEST1 EACH PO (07:45)
[2020-06-18] MEDS ORDERED: BUSPIRONE HCL15 MG PO (07:46)
[2020-06-18] MEDS ORDERED: CARAFATE1 GM/10 ML PO (09:10)
[2020-06-18] MEDS ORDERED: NORCO 7.5-3251 EACH PO (09:10)
[2020-06-18] MEDS ORDERED: OMEPRAZOLE20 MG PO (09:10)
[2020-06-18] MEDS ORDERED: ONDANSETRON ODT8 MG PO (09:10)
[2020-06-18] MEDS ORDERED: DICYCLOMINE HCL20 MG PO (09:10)
--- NOTE | 2020-06-18 12:39 | EKG ---
[facility] [address] [place] [address] Signed Normal sinus rhythm with sinus arrhythmia Rightward axis Borderline ECG No previous ECGs available Confirmed by ELLIE OBUCHER MD ([id number]) on 06/18/2020 12:39:00 PM Electronically Signed By: ELLIE BOUCHER MD 06/18/20 1239 PATIENT NAME: ARSALAN SOL Electrocardiogram DATE OF : 89 PHYSICIAN: ELLIE BOUCHER MD REPORT #: [id number] REPORT IS CONFIDENTIAL AND NOT TO BE RELEASED WITHOUT AUTHORIZATION
== END 2020-06-18 09:15 | disposition home or self-care (01) ==
LOC: ED 07:33
DX: K20.80 Other esophagitis without bleeding (principal); Z79.899 Other long term (current) drug therapy
CPT/HCPCS: 93005; 93010; 99284-25; A9270

== ENCOUNTER 2021-05-07 05:36 | Emergency (ER) | payer OTHER ==
[~2021-05-07] VITALS: Ht 170.2 cm; Wt 79.4 kg
[~2021-05-07 05:36] MED LIST changes: +BUSPIRONE HCL15 MG PO; +CARAFATE1 GM/10 ML PO; +DICYCLOMINE HCL20 MG PO; +ELINEST1 EACH PO; +NORCO 7.5-3251 EACH PO; +OMEPRAZOLE20 MG PO; +VENTOLIN HFA18 GM INH; +ZOLOFT100 MG PO
--- OUTSIDE RECORDS SUMMARY | 2021-05-07 05:38 | XMS ---
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 EDamián VISIT COUNT (12 MO.) 2 MARY Servin TOTAL 2 NOTE: Visits indicate total known visits. 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
[2021-05-07] MEDS ORDERED: WELLBUTRIN SR100 MG PO (05:48)
== END 2021-05-07 07:00 | disposition home or self-care (01) ==
LOC: ED 05:36
DX: S63.502A Unspecified sprain of left wrist, initial encounter (principal); W01.0XXA Fall on same level from slipping, tripping and stumbling without subsequent striking against object, initial encounter; Z79.899 Other long term (current) drug therapy
CPT/HCPCS: 73110; 99283-25

== ENCOUNTER 2021-08-28 18:47 | Emergency (ER) | payer OTHER ==
[~2021-08-28] VITALS: Ht 170.2 cm; Wt 79.4 kg
[~2021-08-28 18:47] MED LIST changes: +WELLBUTRIN SR100 MG PO
--- OUTSIDE RECORDS SUMMARY | 2021-08-28 18:50 | XMS ---
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 E.D. VISIT COUNT (12 MO.) 2 MARY Servin TOTAL 2 NOTE: Visits indicate total known visits. ED/UCC VISIT TRACKING (12 MO.) 08/28/2021 18:48 [facility] [place] TYPE: Emergency COMPLAINT: - SORE THROAT, DIFFICULTY SWOLLENING 05/07/2021 05:37 [facility] [place] TYPE: Emergency COMPLAINT: - FALL/LEFT ARM INJURY DIAGNOSES: - Unspecified injury of left wrist, hand and finger(s), initial encounter - Other fci (current) drug therapy - Fall on same level from slipping, tripping and stumbling without subsequent striking against object, initial encounter - Unspecified sprain of left wrist, initial encounter INPATIENT VISIT TRACKING (12 MO.) No inpatient visits to display in this time frame [email or web address]
[2021-08-28] MEDS ORDERED: LIDOCAINE HCL100 ML MT (21:20)
[2021-08-28] MEDS ORDERED: CYCLOBENZAPRINE10 MG PO (21:20)
== END 2021-08-28 21:38 | disposition home or self-care (01) ==
LOC: ED 18:47
DX: U07.1 COVID-19 (principal); Z79.51 Long term (current) use of inhaled steroids
CPT/HCPCS: 96372; 99284; A9270; C9803; J1885; U0003

== ENCOUNTER 2021-09-02 04:08 | Emergency (ER) | payer OTHER ==
[~2021-09-02] VITALS: Ht 170.2 cm; Wt 78.3 kg
[~2021-09-02 04:08] MED LIST changes: +LIDOCAINE HCL100 ML MT
--- OUTSIDE RECORDS SUMMARY | 2021-09-02 04:10 | XMS ---
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 Current PHONE: [phone] Kim has no Care Guidelines for this patient. E.D. VISIT COUNT (12 MO.) 3 MARY Servin TOTAL 3 NOTE: Visits indicate total known visits. ED/UCC VISIT TRACKING (12 MO.) 09/02/2021 04:09 M[facility]str[facility] [place] TYPE: Emergency COMPLAINT: - EAR PAIN, SORE THROAT 08/28/2021 18:48 M[facility] Estrada [place] TYPE: Emergency COMPLAINT: - SORE THROAT, DIFFICULTY SWOLLENING DIAGNOSES: - [facility] (current) use of inhaled steroids - COVID-19 - Headache, unspecified 05/07/2021 05:37 M[facility] Estrada [place] TYPE: Emergency COMPLAINT: - FALL/LEFT ARM INJURY DIAGNOSES: - Unspecified injury of left wrist, hand and finger(s), initial encounter - Other long term care phlebotomist (current) drug therapy - Fall on same level from slipping, tripping and stumbling without subsequent striking against object, initial encounter - Unspecified sprain of left wrist, initial encounter INPATIENT VISIT TRACKING (12 MO.) No inpatient visits to display in this time frame [email or web address]
[2021-09-02] MEDS ORDERED: PROMETH-CODEIN 65 ML PO (05:41)
== END 2021-09-02 05:49 | disposition home or self-care (01) ==
LOC: ED 04:08
DX: U07.1 COVID-19 (principal)
CPT/HCPCS: 96372; 99283; A9270; J1885